=== PATIENT | male | born 1995 | race Caucasian/White ===

== ENCOUNTER 2021-11-24 10:58 | Outpatient (REF) | payer OTHER, SELFPAY ==
--- NOTE | ~2021-11-24 | US_ITS ---
EXAMINATION: LEG VENOUS ULTRASOUND WITH DOPPLER, RIGHT CLINICAL INFORMATION: Pain COMPARISON: None TECHNIQUE: Deep venous ultrasound using grayscale and duplex Doppler. FINDINGS: No evidence of any DVT. Normal compressibility and phasic waveforms with respiration. No popliteal fossa abnormality. US/US venous duplex LE RT IMPRESSION: No DVT demonstrated in the right lower extremity. Please see ultrasound scrotum report for detail.
--- NOTE | ~2021-11-24 | US_ITS ---
EXAMINATION: LEG VENOUS ULTRASOUND WITH DOPPLER, RIGHT CLINICAL INFORMATION: Pain COMPARISON: None TECHNIQUE: Deep venous ultrasound using grayscale and duplex Doppler. FINDINGS: No evidence of any DVT. Normal compressibility and phasic waveforms with respiration. No popliteal fossa abnormality. US/US scrotum doppler IMPRESSION: No DVT demonstrated in the right lower extremity. Please see ultrasound scrotum report for detail.
--- NOTE | ~2021-11-24 | US_ITS ---
EXAMINATION: US SCROTUM CLINICAL INFORMATION: Testicle pain. COMPARISON: None TECHNIQUE: A sonogram of the scrotum was performed assessing fernandez-scale appearance and color Doppler flow. Spectral Doppler analysis of the arterial and venous flow were performed in the testes bilaterally. FINDINGS: RIGHT: Right testicle measures 4.06 x 2.0 x 2.92 cm, volume 12.5 mL. No focal testicular parenchymal lesions are visualized. Spectral Doppler analysis of the arterial and venous flow is normal in the right testis. Right epididymal head is normal in size. Small right hydrocele. Right varicocele. Right varicocele demonstrates absence of flow suggesting possible thrombosis. Right epididymal Doppler flow is normal. LEFT: Left testicle measures 4.31 x 2.16 x 3.76 cm, volume 18.4 mL. No focal testicular parenchymal lesions are visualized. Spectral Doppler analysis of the arterial and venous flow is normal in the left testis. Left epididymal head is normal in size. Small left hydrocele. Left varicocele. Left epididymal Doppler flow is normal. US/US scrotum IMPRESSION: 1. Small bilateral hydroceles. 2. Left varicocele. 3. Right varicocele with absence of flow suggesting possible thrombosis.
== END 2021-11-24 10:59 | disposition home or self-care (01) ==
LOC: HO.HMGCX 10:58
PROVIDERS: PCP Nurse Practitioner Family; Visit Provider Physician Assistant
DX: R10.30 Lower abdominal pain, unspecified (principal); N50.819 Testicular pain, unspecified; M79.651 Pain in right thigh
CPT/HCPCS: 76870; 93971; 93975

== ENCOUNTER 2021-11-24 14:27 | Emergency (ER) | payer OTHER, SELFPAY ==
--- NOTE | 2021-11-24 15:07 | ED_ITS ---
HPI - Male Genitourinary General Chief complaint: Urogenital-Male Stated complaint: R side bloodclot Time Seen by Provider: 11/24/21 15:03 Source: patient Mode of arrival: ambulatory Limitations: no limitations History of Present Illness HPI Narrative: Patient complaining of pain in the right scrotum area for last 3 weeks without any significant swelling no penile discharge no trauma. Patient had ultrasound done as outpatient which showed partial right varicocele thrombosis Related Data Previous Rx's Medication Instructions Recorded cyclobenzaprine 10 mg tablet 10 mg PO BEDTIME PRN muscle spasm 11/24/21 #14 tabs Allergies Allergy/AdvReac Type Severity Reaction Status Date / Time codeine [CODEINE] Allergy Unknown ABD PAIN Verified 11/24/21 09:54 Codeine Sulfate AdvReac Unknown GI Upset Uncoded 11/24/21 09:54 Review of Systems Review of Systems: Yes all other systems are reviewed and are negative [facility] Social History Social History Patient Tobacco Use Status: Current everyday Tobacco user Advance Directives: No Advance Directives Information Provided: Yes Physical Exam Vital Signs: Vital Signs: Last Vital Signs Temp 98 F 11/24/21 15:19 Pulse 86 11/24/21 15:19 Resp 18 11/24/21 15:19 BP 144/72 H 11/24/21 15:19 Pulse Ox 99 11/24/21 15:19 O2 Del Method 11/24/21 15:19 BMI result Body Mass Index 28.5 : Male genitals images: 1. Slight tenderness right base of testicle testicle normal size nontender no discoloration MDM - Male Genitourinary MDM Narrative Medical decision making narrative: Patient with partial right varicocele thrombosis case discussed Dr. Ardon urologist advised NSAIDs/aspirin. Discharge Plan Discharge Clinical Impression: Varicocele Patient Disposition: Home, Self-Care Instructions: Varicocele (ED) Additional Instructions: Give scrotal support as advised Ibuprofen for pain You may take regular doreen aspirin daily for next 2-3 weeks Prescriptions: No Action cyclobenzaprine 10 mg tablet 10 mg PO BEDTIME PRN (Reason: muscle spasm) Qty: 14 0RF Interventions: ED Discharge Assessment Last Done: 11/24/21 15:49 Discharge Date/Time: 11/24/21 15:50
[2021-11-24 15:19] VITALS: BP 144/72; PULSE 86; RESP 18; TEMP 36.6; O2SAT 99; BMI 28.5
[2021-11-24] MEDS: Aspirin 325 MG TABLET PO (15:44)
== END 2021-11-24 15:50 | disposition home or self-care (01) ==
PROVIDERS: Emergency Provider Internal Medicine; PCP Nurse Practitioner Family
DX: I86.1 Scrotal varices (principal); N50.82 Scrotal pain; F17.200 Nicotine dependence, unspecified, uncomplicated
CPT/HCPCS: 99283